=== PATIENT | female | born 1995 | race Caucasian/White ===

== ENCOUNTER 2018-06-19 01:19 | Inpatient (IN) | payer MEDICAID, OTHER ==
[2018-06-19] MEDS ORDERED: Lactated Ringers 1,000 ML IV ONE (01:29)
[2018-06-19] MEDS ORDERED: PITOCIN 30 UNITS/ LR 500 ML 500 ML IV ONE (01:30)
[2018-06-19] MEDS ORDERED: XYLOCAINE 1% HCL 20 ML MDV IJ PRN (01:40)
[2018-06-19] MEDS ORDERED: TYLENOL EXTRA STRENGTH 500 MG PO PRN ×2 (01:54→03:41)
[2018-06-19] MEDS ORDERED: OMNIPEN 2 GM / NACL 100ML 100 ML IV ONE (01:54)
[2018-06-19] MEDS ORDERED: PITOCIN 30 UNITS/ LR 500 ML 500 ML IV SCH (02:00)
[2018-06-19] MEDS ORDERED: Lactated Ringers 1,000 ML IV SCH (02:00)
[2018-06-19 02:30] LABS: BASOPHIL % 0.1 % (0.0-0.4); Basophil (Absolute #) 0.01 (0-0.4); Eosinophil % 0.3 % (0.00-5.0); Eosinophil (Absolute #) 0.04 (0-0.5); Granulocyte Absolute (ANC) 8.71 (1.4-6.9); Granulocytes % 65.5 % (36.0-66.0); Hemoglobin 11.6 gm/dl (12.0-16.0); Lymphocyte (Absolute #) 3.33 (1.0-4.6); Lymphocytes % 25.1 % (24.0-44.0); Mean Cell Volume 91.6 fl (78-100); Mean Corpuscular Hemoglobin 29.5 pg (26-32); Mean Corpuscular Hgb Concent. 32.2 g/dl (32-36); Mean Platelet Volume 10.6 fl (6-9.5); Monocyte (Absolute #) 1.19 (0.0-1.3); Platelet Count 293 K/mm3 (150-450); Red Blood Count 3.93 M/mm3 (4.1-5.4); Red Cell Distribution Width 13.6 % (11.5-14.0); White Blood Count 13.3 K/mm3 (4.0-10.5)
[2018-06-19 03:05] LABS: ABO TYPING AB; Antibody Screen NEGATIVE (NEGATIVE); RH TYPING POSITIVE
[2018-06-19] MEDS ORDERED: Dermoplast Spray TP PRN (03:41)
[2018-06-19] MEDS ORDERED: LANSINOH 40 GM TOP PRN (03:41)
[2018-06-19] MEDS ORDERED: MOTRIN 400 MG PO PRN (03:41)
[2018-06-19] MEDS ORDERED: TUCKS TP PRN (03:41)
[2018-06-19] MEDS ORDERED: NORCO 5/325 MG PO PRN (03:41)
[2018-06-19] MEDS ORDERED: Mylicon 80MG PO PRN (03:41)
[2018-06-19] MEDS ORDERED: TUCKS TP ONE (03:47)
[2018-06-19] MEDS ORDERED: Dermoplast Spray ONE (03:47)
[2018-06-19] MEDS ORDERED: MOTRIN 400 MG ONE (04:01)
[2018-06-19] MEDS ORDERED: Mylicon 80MG ONE (05:09)
[2018-06-19] MEDS ORDERED: Adacel Vial IM ONE (09:00)
[2018-06-19] MEDS ORDERED: Colace 100 MG PO SCH (10:00)
[2018-06-19] MEDS ORDERED: FERREX 150 PO SCH (10:00)
[2018-06-19 15:15] LABS: BASOPHIL % 0.1 % (0.0-0.4); Basophil (Absolute #) 0.02 (0-0.4); Eosinophil % 0.1 % (0.00-5.0); Eosinophil (Absolute #) 0.02 (0-0.5); Granulocyte Absolute (ANC) 12.06 (1.4-6.9); Granulocytes % 77.7 % (36.0-66.0); Hematocrit 33.8 % (35-47); Hemoglobin 11.1 gm/dl (12.0-16.0); Lymphocyte (Absolute #) 2.34 (1.0-4.6); Mean Cell Volume 92.6 fl (78-100); Mean Corpuscular Hemoglobin 30.4 pg (26-32); Mean Corpuscular Hgb Concent. 32.8 g/dl (32-36); Mean Platelet Volume 10.6 fl (6-9.5); Monocyte (Absolute #) 1.11 (0.0-1.3); Monocytes % 7.1 % (0.0-12.0); Platelet Count 277 K/mm3 (150-450); Red Blood Count 3.65 M/mm3 (4.1-5.4); Red Cell Distribution Width 13.7 % (11.5-14.0); White Blood Count 15.6 K/mm3 (4.0-10.5)
[2018-06-19 15:57] LABS: Amphetamine,Urine NEGATIVE (NEGATIVE); Barbiturate,Urine NEGATIVE (NEGATIVE); Benzodiazepine,Urine NEGATIVE (NEGATIVE); Cocaine,Urine NEGATIVE (NEGATIVE); Methadone,Urine NEGATIVE (NEGATIVE); Opiate,Urine NEGATIVE (NEGATIVE); PCP,Urine NEGATIVE (NEGATIVE); THC,Urine POSITIVE (NEGATIVE)
[2018-06-19 16:50] VITALS: BP 122/57; PULSE 73
== END 2018-06-19 16:30 | disposition home or self-care (01) | DRG 807 ==
LOC: OB 01:19 → OBSVTOIN 01:19 → OB 01:30
PROVIDERS: ADMIT Family Medicine; ATTEND Family Medicine
PROC: 10E0XZZ Delivery of Products of Conception, External Approach (ICD-10-PCS; principal; 2018-06-19)
DX: O42.013 Preterm premature rupture of membranes, onset of labor within 24 hours of rupture, third trimester (principal); Z37.0 Single live birth; Z3A.33 33 weeks gestation of pregnancy
CPT/HCPCS: 36415; 80307; 83986; 85025; 86850; 86900; 86901; 90715; G0378; J0290; J2590; A9270-GY